=== PATIENT | male | born 1955 ===

== ENCOUNTER → 2018-06-16 | Outpatient (CLI) | payer BC ==
[~2018-06-16] MED LIST: ASPI81CH PO; BENAML20/5 PO; ETOD500 PO; FINA5 PO; IBUP400 PO; TAMS.4ER PO
[2018-06-16 09:52] LABS: BASOPHILS ABSOLUTE AUTO 0.04 K/mm3 (0.00-0.23); BASOPHILS PERCENT AUTO 1 % (0-2); EOSINOPHILS ABSOLUTE AUTO 0.16 K/mm3 (0.00-0.68); EOSINOPHILS PERCENT AUTO 2 % (0-6); Hematocrit 42.8 % (37.0-53.0); Hemoglobin 14.8 g/dL (13.5-17.5); IMMATURE GRAN ABSOLUTE AUTO 0.02 K/mm3 (0.00-0.10); IMMATURE GRAN PERCENT AUTO 0 % (0-1); LYMPHOCYTES ABSOLUTE AUTO 1.17 K/mm3 (0.84-5.20); LYMPHOCYTES PERCENT AUTO 18 % (21-46); MONOCYTES ABSOLUTE AUTO 0.42 K/mm3 (0.16-1.47); MONOCYTES PERCENT AUTO 6 % (4-13); Mean Corpuscular HGB Conc 34.6 g/dL (31.5-36.5); Mean Corpuscular Volume 87 fL (80-100); NEUTROPHILS ABSOLUTE AUTO 4.75 K/mm3 (1.96-9.15); NEUTROPHILS PERCENT AUTO 73 % (41-73); Platelet Count 365 K/mm3 (150-400); RDW Coefficient Variation 12.8 % (11.7-14.2); RDW Standard Deviation 40.5 fL (35.1-46.3); Red Blood Cell Count 4.93 M/mm3 (4.30-5.90); White Blood Cell Count 6.56 K/mm3 (4.00-11.30)
[2018-06-16 10:01] LABS: Anion Gap 10 mmol/L (6-16); Blood Urea Nitrogen 19 mg/dL (8-24); Bun/Creatinine Ratio 21.1 (12.0-20.0); CO2, Blood 29 mmol/L (21-32); Calcium, Blood 9.6 mg/dL (8.5-10.1); Chloride, Blood 100 mmol/L (98-108); Glomerular Filtration Rate >60 (60-); Glucose, Blood 107 mg/dL (70-99); Sodium, Blood 139 mmol/L (136-145)
== END | disposition home or self-care (01) ==
LOC: LAB SHORT 09:47 → LAB EV 09:47
PROVIDERS: Physician Assistant Surgical
DX: G45.3 Amaurosis fugax (principal)
CPT/HCPCS: 80048; 85025; 85651; 86140

== ENCOUNTER 2019-05-19 07:34 | Day surgery (SDC) | payer BC ==
[~2019-05-19] VITALS: Ht 179 cm; Wt 77.1 kg
[~2019-05-19 07:34] MED LIST changes: +AMLO10 PO
--- NOTE | 2019-05-19 08:26 | NUR ---
History, Chart, Medications and Allergies reviewed before start of procedure.Patient confirms NPO status and agrees with scheduled surgery. Patient states colon prep results clear.Lungs clear T/O to Auscultation.
--- NOTE | 2019-05-19 09:01 | NUR ---
05/19/19 0901 TONNY SINGH History, Chart, Medications and Allergies reviewed before start of procedure.3-LEAD EKG REVIEWED WITH PHYSICIAN PRIOR TO START OF PROCEDURE.O2 VIA N/C INTACT THROUGHOUT SEDATION/PROCEDURE. PATIENT DETERMINED TO BE ASA APPROPRIATE FOR PROPOFOL SEDATION PRIOR TO START OF PROCEDURE BY .
== END 2019-05-19 23:11 | disposition home or self-care (01) ==
LOC: ORSCMMR 07:34 → ORD 09:00 → ORSCMMR 09:00
PROVIDERS: Internal Medicine Gastroenterology
PROC: 0DBL8ZX Excision of Transverse Colon, Via Natural or Artificial Opening Endoscopic, Diagnostic (ICD-10-PCS; principal; 2019-05-19 09:00)
PROC: 0DBN8ZX Excision of Sigmoid Colon, Via Natural or Artificial Opening Endoscopic, Diagnostic (ICD-10-PCS; principal; 2019-05-19 09:00)
DX: Z12.11 Encounter for screening for malignant neoplasm of colon (principal); K63.5 Polyp of colon; D12.3 Benign neoplasm of transverse colon; I10 Essential (primary) hypertension; Z79.82 Long term (current) use of aspirin; Z79.899 Other long term (current) drug therapy
CPT/HCPCS: 88305; J2704; J7120

== ENCOUNTER 2024-09-27 08:30 | Day surgery (SDC) | payer MEDICARE, BC ==
[2024-09-27] VITALS (17 sets, daily range): BP systolic 105–151; BP diastolic 72–103
[2024-09-27] MEDS ORDERED: TAMS.4ER PO (09:02)
[2024-09-27] MEDS ORDERED: Lactated Ringer's 1,000 ML IV SCH (09:10)
--- NOTE | 2024-09-27 09:19 | NUR ---
Ambulatory in Day Surgery History, Chart, Medications and Allergies reviewed before start of procedure.Patient confirms NPO status and agrees with scheduled surgery. Lungs clear T/O to Auscultation. Patient States Post-Procedure ride home has been arranged. Patient states colon prep results clear.
[2024-09-27] MEDS ORDERED: propofoL 20 ML IV ONE (09:43)
[2024-09-27] MEDS ORDERED: Midazolam HCl 1MG / ML 2ML Vial ONE (10:00)
--- NOTE | 2024-09-27 10:07 | NUR ---
09/27/24 Efrain Santos CONFIRMED AND REVIEWED H&P, MEDCICATIONS, ALLERGIES, MEDICAL HISTORY, RESPIRATORY HISTORY, VITAL SIGNS, 3-LEAD EKG, CONSENTS, AND PHYSICIAN ORDERS. PATIENT CONFIRMS NPO STATUS AND AGREES WITH SCHEDULED PROCEDURE. MONITOR INTACT WITH CONTINUOUS PULSE OXIMETRY, CAPNOGRAPHY, 3-LEAD EKG, INTERMITTENT BP. SUPPLEMENTAL O2 TO BE TITRATED THROUGHOUT PROCEDURE TO MAINTAIN O2 SATURATION ABOVE 90%. PATIENT DETERMINED TO BE ASA APPROPRIATE FOR PROPOFOL SEDATION PRIOR TO START OF PROCEDURE BY DR. WHYTE
--- NOTE | 2024-09-27 10:28 | NUR ---
REPORT RECEIVED FROM SHILPA CASTILLO. VSS. PT ON RA. PT [id number]. PT ABLE TO REPOSITION SELF IN BED. PT REQUESTING PO FLUIDS AND TOLERATING THEM WELL. PT DENIES PAIN, NAUSEA OR OTHER DISCOMFORTS.
== END 2024-09-27 10:45 | disposition home or self-care (01) ==
LOC: ORSCMMR 08:30 → ORD 09:30 → ORSCMMR 09:30
PROVIDERS: Internal Medicine Gastroenterology
PROC: 0DBN8ZX Excision of Sigmoid Colon, Via Natural or Artificial Opening Endoscopic, Diagnostic (ICD-10-PCS; principal; 2024-09-27 09:30)
DX: Z12.11 Encounter for screening for malignant neoplasm of colon (principal); Z86.0100 Personal history of colon polyps, unspecified; D12.5 Benign neoplasm of sigmoid colon; I10 Essential (primary) hypertension; N40.0 Benign prostatic hyperplasia without lower urinary tract symptoms; Z87.891 Personal history of nicotine dependence; Z79.899 Other long term (current) drug therapy
CPT/HCPCS: 88305; J2250; J2704; J7120